=== PATIENT | male | born 1940 | race Caucasian/White ===

== ENCOUNTER → 2020-05-28 14:37 | Outpatient (BNVA) | payer MEDICARE, OTHER, SELFPAY | PROVIDERS: PCP Internal Medicine; Visit Provider Hospitalist | DX: J96.10 Chronic respiratory failure, unspecified whether with hypoxia or hypercapnia (principal); J44.9 Chronic obstructive pulmonary disease, unspecified | CPT/HCPCS: 99202 ==

== ENCOUNTER → 2020-06-29 14:13 | Outpatient (BNVA) | payer MEDICARE, OTHER, SELFPAY | PROVIDERS: PCP Internal Medicine; Visit Provider Hospitalist | DX: J96.10 Chronic respiratory failure, unspecified whether with hypoxia or hypercapnia (principal); J44.9 Chronic obstructive pulmonary disease, unspecified; G47.33 Obstructive sleep apnea (adult) (pediatric); R91.8 Other nonspecific abnormal finding of lung field; I27.81 Cor pulmonale (chronic) | CPT/HCPCS: 99212 ==

== ENCOUNTER → 2020-08-24 12:53 | Outpatient (BNVA) | payer MEDICARE, OTHER, SELFPAY | PROVIDERS: PCP Internal Medicine; Visit Provider Hospitalist | DX: G47.33 Obstructive sleep apnea (adult) (pediatric) (principal); R91.8 Other nonspecific abnormal finding of lung field; J96.11 Chronic respiratory failure with hypoxia; J41.0 Simple chronic bronchitis; I27.81 Cor pulmonale (chronic); Z79.51 Long term (current) use of inhaled steroids; Z87.891 Personal history of nicotine dependence | CPT/HCPCS: 99212 ==

== ENCOUNTER → 2020-10-15 14:17 | Outpatient (BNVA) | payer MEDICARE, OTHER, SELFPAY | PROVIDERS: PCP Internal Medicine; Visit Provider Hospitalist | DX: G47.33 Obstructive sleep apnea (adult) (pediatric) (principal); I27.81 Cor pulmonale (chronic); R91.8 Other nonspecific abnormal finding of lung field; J96.11 Chronic respiratory failure with hypoxia; J41.0 Simple chronic bronchitis | CPT/HCPCS: 94618; 99212; Q3014 ==

== ENCOUNTER 2020-10-21 15:03 | Outpatient (REF) | payer MEDICARE, OTHER, SELFPAY ==
--- NOTE | 2020-10-21 16:51 | PFT_ITS ---
INDICATION: COPD. SPIROMETRY: The FEV1 to FVC 52% with an FEV1 of 1.58 L, which is 72% predicted, and an FVC of 3.03 L, which is 97% predicted. No significant response to bronchodilators noted. Maximum voluntary ventilation 35% predicted. LUNG VOLUMES: Total lung capacity 100% predicted with residual volume 126% predicted. DIFFUSION CAPACITY: DLCO 70% predicted. COMPARISONS: None available. INTERPRETATION: The patient is an obstructive ventilatory defect consistent with moderate COPD. No significant response to bronchodilators noted. There is also moderate decrease in maximum voluntary ventilation secondary to deconditioning and also worsening dynamic inspiratory capacity. Lung volumes with significant air trapping due to the COPD in a very severe diffusion impairment. Clinical correlation warranted. Sampson Bateman MD MR/MODL / [id number]
== END 2020-10-21 15:04 | disposition home or self-care (01) ==
LOC: HO.RESP 15:03
PROVIDERS: PCP Internal Medicine; Visit Provider Hospitalist
DX: J41.0 Simple chronic bronchitis (principal)
CPT/HCPCS: 94060; 94727; 94729

== ENCOUNTER → 2020-11-30 13:32 | Outpatient (BNVA) | payer MEDICARE, OTHER, SELFPAY | PROVIDERS: PCP Internal Medicine; Visit Provider Hospitalist | DX: G47.33 Obstructive sleep apnea (adult) (pediatric) (principal); I27.81 Cor pulmonale (chronic); R91.8 Other nonspecific abnormal finding of lung field; J96.11 Chronic respiratory failure with hypoxia; J41.0 Simple chronic bronchitis | CPT/HCPCS: 99212 ==

== ENCOUNTER → 2021-05-31 13:33 | Outpatient (BNVA) | payer MEDICARE, OTHER, SELFPAY | PROVIDERS: PCP Internal Medicine; Visit Provider Hospitalist | DX: G47.33 Obstructive sleep apnea (adult) (pediatric) (principal); J96.11 Chronic respiratory failure with hypoxia; J41.0 Simple chronic bronchitis; R91.8 Other nonspecific abnormal finding of lung field; I27.81 Cor pulmonale (chronic) | CPT/HCPCS: 99212 ==

== ENCOUNTER 2021-11-29 14:01 | Outpatient (REF) | payer MEDICARE, OTHER, SELFPAY ==
[2021-11-29 14:21] LABS: MANUAL DIFF FLAG NO
[2021-11-29 14:25] LABS: Basophils Percent Auto 0.2 % (0-2); Eosinophils Absolute Auto 0.1 X10*3/uL (0.0-0.4); Eosinophils Percent Auto 1.5 % (0-4); Hematocrit 28.9 % (42.0-52.0); Hemoglobin 9.1 g/dl (14.0-18.0); Imm Gran Abs Auto 0.03 X10*3/uL (0.00-0.03); Imm Gran Pct Auto 0.5 % (0.0-0.4); Lymphocytes Absolute Auto 0.7 X10*3/uL (1.2-4.9); Lymphocytes Percent Auto 12.7 % (20-40); Mean Corpuscular HGB Conc 31.5 g/dl (31.0-36.0); Mean Corpuscular Hemoglobin 30.4 pg (27.0-33.0); Mean Corpuscular Volume 96.7 fL (80.0-98.0); Mean Platelet Volume 9.9 fL (9.4-12.4); Monocytes Absolute Auto 0.6 X10*3/uL (0.1-1.2); Monocytes Percent Auto 9.5 % (2-11); Neutrophils Absolute Auto 4.4 x10*3/uL (2.0-8.3); Neutrophils Percent Auto 75.6 % (45-73); Red Blood Count 2.99 X10*6/uL (4.60-5.80); Red Cell Distribution Width 16.9 % (11.0-16.0); White Blood Count 5.8 X10*3/uL (4.8-10.8)
[2021-11-29 14:26] LABS: Platelet Count 55 X10*3/uL (160-400); Venous Blood Gas Refer to POC result
[2021-11-29 14:39] LABS: VBG pCO2 55 mmHg; VBG pH 7.32 (7.32-7.43); VBG pO2 30 mmHg
[2021-11-29 14:40] LABS: VBG Base Excess 2.4 mmol/L; VBG HCO3 29 mmol/L (22-26)
[2021-11-29 14:45] LABS: Anion Gap 11 (12-20); Blood Urea Nitrogen 26 mg/dL (9-16); Calcium 9.5 mg/dL (8.4-10.2); Carbon Dioxide 30 mmol/L (22-29); Chloride 105 mmol/L (96-108); Estimated Glomerular Filt Rate 37; Glucose Random 88 mg/dL (60-115); Potassium 5.7 mmol/L (3.3-5.1); Sodium 140 mmol/L (135-145)
[2021-11-29 15:02] LABS: Erythrocyte Sedimentation Rate 110 MM/HR (0-15)
[2021-12-03 14:02] LABS: CK-BB None Detected (None Detected); CK-MB 0 % (<5); CK-MM 100 % (95-100); Creatine Kinase,Total,Serum 34 U/L (44-196)
== END 2021-11-29 14:02 | disposition home or self-care (01) ==
LOC: HO.LAB 14:01
PROVIDERS: Visit Provider Hospitalist
DX: G47.33 Obstructive sleep apnea (adult) (pediatric) (principal); I27.81 Cor pulmonale (chronic); R91.8 Other nonspecific abnormal finding of lung field; J96.11 Chronic respiratory failure with hypoxia; J44.9 Chronic obstructive pulmonary disease, unspecified; M62.81 Muscle weakness (generalized); Z87.891 Personal history of nicotine dependence
CPT/HCPCS: 36415; 80048; 82552; 82803; 85025; 85652; 99212

== ENCOUNTER → 2022-06-06 13:08 | Outpatient (BNVA) | payer MEDICARE, OTHER, SELFPAY | PROVIDERS: PCP Internal Medicine; Visit Provider Hospitalist | DX: G47.33 Obstructive sleep apnea (adult) (pediatric) (principal); J96.11 Chronic respiratory failure with hypoxia; R91.8 Other nonspecific abnormal finding of lung field; I27.81 Cor pulmonale (chronic); J41.0 Simple chronic bronchitis | CPT/HCPCS: 99212 ==

== ENCOUNTER → 2022-11-14 13:20 | Outpatient (BNVA) | payer MEDICARE, OTHER, SELFPAY | PROVIDERS: PCP Internal Medicine; Visit Provider Hospitalist | DX: J41.0 Simple chronic bronchitis (principal); J96.11 Chronic respiratory failure with hypoxia; G47.33 Obstructive sleep apnea (adult) (pediatric); I27.81 Cor pulmonale (chronic); R91.8 Other nonspecific abnormal finding of lung field; Z79.899 Other long term (current) drug therapy; Z99.81 Dependence on supplemental oxygen | CPT/HCPCS: 99212 ==

== ENCOUNTER 2023-08-21 13:15 | Outpatient (AMB) | payer MEDICARE, OTHER, SELFPAY ==
[2023-08-21 13:28] VITALS: PULSE 70; O2SAT 95; BMI 24.9
--- NOTE | 2023-08-21 13:28 | A.OFFVIS_ITS ---
Intake Vital Signs 08/21/23 13:28 Height 5 ft 4 in Weight 145 lb BMI 24.9 Pulse 70 Pulse Source Pulse Oximeter Pulse Oximetry (%) 95 Oxygen Delivery Method Room Air Intake Visit Reasons: COPD Healthcare Social Worker Required: No Allergies adhesive tape Allergy (Severe, Verified 08/21/23 13:29) Blister HPI HPI Comments History of Present Illness Details The patient is a 83-year-old gentleman with extensive COPD and emphysema, chronic respiratory failure on oxygen in addition to pulmonary nodul es. He has been complaining worsening shortness of breath for the last several months. He does not feel his inhalers are helping him. He does use the oxygen however does not feel that he gets any benefit from the oxygen either. He has been using a conserving device in he does increase it to 4 L pulse. He did have a CT scan of the chest done at [facility] which we personally revie wed demonstrating the extensive emphysema throughout his lungs. He does have subcentimeter pulmonary nodules. Also appears to have some degree of interstitial lung disease at the bases. Overall this is very significant. In the office we did taken for 6 minutes walk test and he would desaturate on 4 L pulse down to 86%. Therefore he needs to be in continues oxygen. I did call his DME company in order to switch him to a continues tank. Ideally with a Oxymizer pendant began keep his oxygen L flow down and he can have a reserve were to help him to be less breathless in view of his extensive emphysema. His D[facility] company is [employer]. 06/29/2020 the patient is here for pulabby crowe follow-up visit. Recently he was hospitalized with worsening respiratory symptoms. He was found to be in dorene estive heart failure. [place] [facility] he had a full workup including a CT scan of the chest which we personally reviewed demonstrating extensive emphysema and additional to some pulmonary nodules which appeared to be slightly larger in size. Along with some underlying pulmonary fibrosis. In addition to that he did undergo a perfusion study that was negative for any PE, had an echocardiogram demonstrating evidence of pulmonary hypertension and also aortic stenosis. His medications were appropriately adjusted and the patient was diuresed aggressively decreasing a lot of the lower extremity edema. In addition to that the patient has been having some daytime drowsiness. Last night he woke up dizzy with headaches. He continues to have an elevated Sumner score of 12/24. He has extensive cardiac history is significant pulmonary disease. He did have a sleep study done August 2018 demonstrating severe sleep apnea with significant hypoxia. The patient needs to start CPAP therapy SHOAIB. For some reason this was not followed up at this point the patient needs it in order to improve his overall cardiovascular risk factors in overall prognosis. Therefore I will submit a new prescription for CPAP therapy with his current DME company, [facility]. The patient also got his Oxymizer pendant although he is trying to get used to it. I explained to him th at if he uses the Oxymizer pendant as he is outside with his portable tank he will have a longer life to the time. He will consider this at this time. 08/24/2020 the patient is here for maria c crowe follow-up visit. Patient continues to use the oxygen with good effect. However, at this point the portable oxygen gas tank does not given a portability. The patient needs to get a battery operated portable oxygen concentrator. This was given better portability outside of the home. I will request a POC from his local DME company. In the meantime he did not get the CPAP. His sleep study is too old for August 2018. However, the patient has significant daytime drowsiness with an elevated Sumner score 12/24 and he does not feel comfortable undergoing a sleep study at this time. Since he is on oxygen he would have to needed in-lab study and he is concerned about the pandemic at this time. Therefore I will discuss this with the [employer] company to see if they can make an arrangement for him to start CPAP therapy and then we can always retest after he is vaccinated and when the pandemic is in a better overall status. The patient continues with the current respiratory regimen with good effect. He continues to have dyspnea on exertion [id number] severity. But overall better. His lower extremity edema has also improved dramatically. 10/15/2020 the patient is here for maria c crowe follow-up visit. He continues to have significant dyspnea on exertion. When he ambulates he does get short of breath and sometimes his legs feel weak in sometimes he does feel dizzy. Typically he is using a conserving device between 3-5 L pulse. We did request a portable oxygen concentrator from his [employer] company. With this hopefully he can be able to travel to see his family. He did get a larger with the can not handle 2 L continuous. However, in the office we did have him undergo a 6 minutes walk test any did require 3 L with activity to maintain a pulse ox in the 90s. Therefore will recent prescription to see if he can have it device that can handle 3 L if possible. In addition to that the patient will be a great candidate for pulmonary rehabilitation. He is using the CPAP at nighttime. He does have oxygen along with CPAP which is working well. We have to discuss his pulmonary nodule and further imaging in the next visit. 11/30/2020 the patient is here for pulmo willay follow-up visit. Since we last spoke the patient was not able to tolerate the CPAP any longer when he returned it. He continues to sleep with the oxygen. He also has a portable oxygen concentrator that he uses with activity. He did start going to outpatient pulmonary rehabilitation, but, he feels is too far away from the rehab he wishes he has something closely by and not low. At this point he is not significantly closer to any of the program. I did provide him with a web based pulmonary rehabilitation he can do at home. In addition to that did recommend he get [employer] a in a portable peddler that he can exercise both his arms and his legs depending on his arthritis. He is responding well to his current respiratory regimen. 05/31/2021 the patient is here for a pulmonary follow-up visit. He continues to have dyspnea on exertion moderate severity. The oxygen is helpful. The Trelegy inhaler also has been helpful. He still has episodes of chest congestion and chronic bronchitis. Trying to minimize the use of prednisone. The patient would benefit from using Daliresp. Therefore I will send a prescription to the pharmacy. He has been having issues with his oxygen concent rator. I will request a call from the [employer]. 11/29/2021 the patient is here for a pulm onary follow-up visit. Overall he is doing little better. He was admitted to [facility] where he did undergo testing for blood loss. He was found to have multiple bleeding areas in the small bowel that were intervene down. The patient states that he is feeling better from that standpoint. He is using the oxygen with good effect. The patient states that though he still gets short of breath with activity. Also coming into the hospital he quickly felt like his legs were giving out on him. He is very weak and feels like he is going to fall. Very unsteady on his feet. Today he came in and had to be placed on a wheelchair because of the weakness. The patient has been using the oxygen well. Will go ahead and check a venous gas to assess his pCO2 to make sure that he is not having any significant hypercarbia. If he is having hypercapnia then treatment with noninvasive ventil ator may be effective in improving his gas exchange improving his muscle strength and his risk of falls. The patient will also undergo additional blood work. He continues on the Trelegy. This has been helpful. He has not required his rescue inhaler. I did explain to the significant other that his main manifestation of the COPD is mainly in position a based on his last CT scan of the chest. In addition to that he continues on Daliresp. The patient is not using CPAP. 06/06/2022 The patient is here for a pul monary follow up visit. He is feeling better. Still has dyspnea on exertion. moderate in severity. The oxygen has been helpful. He continues the Trelegy and the daliresp. He has been able to lose several pounds. Also he has been dealing with his anemia that is likely contributing to his dyspnea and it has been improving. The patient does have concerning nodules. We will follow up with a CT chest foe the next visit. If he has any issues prior to that he is to call foe an earlier evaluation. 11/14/2022 the patient is here for a pulm onary follow-up visit. Overall patient is doing better. He is responding well to the current respiratory regimen. Still getting dyspnea on exertion specially when going up a hill or flight of stairs. Moderate severity. He does use his oxygen with good effect. The patient did have a CT scan of the chest sometime in September 2022. We did review it together. Seems like the nodular densities have decreased or resolved which is reassuring. He does have extensive emphysema noted. 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 He does have a GI doctor. I will go ahead and fax over the results to his GI doctor so they can reviewed. Seems like the area has not changed when compared to 2021 but looks like is increased when compared to previous. 08/21/2023 the patient is here for pulmona ry follow-up visit. Overall the patient has been doing well. He continues use the Trelegy inhaler. He has also been on Daliresp now for many years. The therapy has been affecting beneficial. Does changed insurance and now is not covering the brand name. They however cover the generic. I will send the generic medication to the pharmacy. Again, this has helped him significantly. he also continues use the oxygen with good effect. He does have portable tanks and also concentrator for home. The patient has been on diuretic therapy. sometimes he does not take it because of the inconvenience of having to be frequently urinating. However, this morning he did have increased shortness of breath and his heart rate is a little bit fast. I do pursuing that he is started to become volume overloaded. He did have blood work at [facility] his brain atretic peptide was indeed elevated. Therefore explained to the importance of taking his diuretic. And have blood work at the end of the week with his primary care doctor to make sure that his electrolytes are stable. Again, his last CT scan was back in September 2022 de monstrating interval improvement of the ground-glass nodular density is regular not studies. Also has extensive emphysema. No additional imaging testing at this time. Will discuss additional testing during his next visit in the fall. [facility] Medical History (Updated 11/14/22 @ 22:51 by Sampson Bateman MD) ARNEL (obstructive sleep apnea) Cor pulmonale Pulmonary nodules Chronic respiratory failure COPD (chronic obstructive pulmonary disease) Social History (Updated 05/31/21 @ 13:43 by ALYSSIA Kevin) Household Members: Spouse Patient Tobacco Use Status: Former Tobacco user Tobacco use type: Cigarette Years Smoked: 11 years Review of Systems Const Denies daytime sleepiness and Denies night sweats ENT Denies change in voice, Denies dizziness, Denies lip swelling, Denies mouth pain, Denies nasal congestion, Reports nasal discharge and Denies tongue swelling Card Denies chest pain, Reports palpitations and Reports dyspnea on exertion Resp Denies chest congestion, Reports cough and Reports dyspnea on exertion GI Denies abdominal pain Musc Denies no additional complaints and Reports muscle weakness Neuro Denies Neuro-related abnormal movements and Denies dizziness Psych Denies no additional complaints Endo Reports palpitations Terrance/Lymph Denies easy bleeding and Denies lymphadenopathy Aller/Immun Denies lip swelling and Denies tongue swelling Physical Exam Vital Signs: Last Vital Signs Pulse 70 08/21/23 13:28 Pulse Ox 95 08/21/23 13:28 Oxygen Delivery Method Room Air 08/21/23 13:28 BMI result Body Mass Index 24.9 Const General: alert Neck Neck: Yes normal visual inspection, Yes full ROM and Yes no lymphadenopathy Chest Chest palpation & inspection: normal inspection of the chest Resp Auscultation: diminished lung sounds Cardio Rate: regular rate Rhythm: regular rhythm Heart sounds: S1 normal heart sound present and S2 normal heart sound present GI Palpation (GI): Soft to palpation and nontender Auscultation: normal bowel sounds Skin General skin exam: rashes and/or lesions noted Assessment & Plan Assessment & Plan (1) ARNEL (obstructive sleep apnea): Comment: Severe ARNEL based on PSG, symptomatic with increase cardiovascular disease, did not tolerate therapy. Using oxygen. Code(s): G47.33 - Obstructive sleep apnea (adult) (pediatric) (2) Cor pulmonale: Code(s): I27.81 - Cor pulmonale (chronic) (3) Pulmonary nodules: Comment: multiple nodules, better Code(s): R91.8 - Other nonspecific abnormal finding of lung field (4) Chronic respiratory failure: Code(s): J96.10 - Chronic respiratory failure, unspecified whether with hypoxia or hypercapnia Qualifiers: Respiratory failure complication: hypoxia Qualified Code(s): J96.11 - Chronic respiratory failure with hypoxia (5) COPD (chronic obstructive pulmonary disease): Code(s): J44.9 - Chronic obstructive pulmonary disease, unspecified Qualifiers: COPD type: chronic bronchitis Chronic bronchitis type: simple Qualified Code(s): J41.0 - Simple chronic bronchitis Plan Continue oxygen supplementation to maintain a pulse ox between 89-96% Continue Trelegy inhaler daily Short-acting beta agonist as needed continue Dalresp/Roflumilast diuresi as tolerated Follow-up 6-8 months Medications: New roflumilast 500 mcg PO DAILY 30 days 30 tabs 11RF Coding Level of Care Code Est Pt Level 4 (05845) Diagnoses ARNEL (obstructive sleep apnea) G47.33 Cor pulmonale I27.81 Pulmonary nodules R91.8 Chronic respiratory failure with hypoxia J96.11 Respiratory failure complication: hypoxia Simple chronic bronchitis J41.0 COPD type: chronic bronchitis Chronic bronchitis type: simple Time Spent (min) 17
== END 2023-08-21 13:47 | disposition home or self-care (01) ==
PROVIDERS: PCP Internal Medicine; Visit Provider Hospitalist
DX: G47.33 Obstructive sleep apnea (adult) (pediatric) (principal); I27.81 Cor pulmonale (chronic); R91.8 Other nonspecific abnormal finding of lung field; J96.11 Chronic respiratory failure with hypoxia; J41.0 Simple chronic bronchitis
CPT/HCPCS: 99214

== ENCOUNTER → 2023-08-21 13:15 | Outpatient (BNVA) | payer MEDICARE, OTHER, SELFPAY | PROVIDERS: Visit Provider Hospitalist | DX: G47.33 Obstructive sleep apnea (adult) (pediatric) (principal); I27.81 Cor pulmonale (chronic); R91.8 Other nonspecific abnormal finding of lung field; J96.11 Chronic respiratory failure with hypoxia; J41.0 Simple chronic bronchitis | CPT/HCPCS: 99212 ==

== ENCOUNTER 2024-01-21 10:40 | Outpatient (AMB) | payer MEDICARE, OTHER, SELFPAY ==
[2024-01-21 10:47] VITALS: PULSE 75; O2SAT 93; BMI 24.0
--- NOTE | 2024-01-21 10:47 | MHC.OFFVIS ---
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 He has been complaining worsening shortness of breath for the last several months. He does not feel his inhalers are helping him. He does use the oxygen however does not feel that he gets any benefit from the oxygen either. He has been using a conserving device in he does increase it to 4 L pulse. He did have a CT scan of the chest done at [facility] which we personally reviewed demonstrating the extensive emphysema throughout his lungs. He does have subcentimeter pulmonary nodules. Also appears to have some degree of interstitial lung disease at the bases. Overall this is very significant. In the office we did taken for 6 minutes walk test and he would desaturate on 4 L pulse down to 86%. Therefore he needs to be in continues oxygen. I did call his DME company in order to switch him to a continues tank. Ideally with a Oxymizer pendant began keep his oxygen L flow down and he can have a reserve were to help him to be less breathless in view of his extensive emphysema. His DME company is [facility]. 06/29/2020 the patient is here for pulmonary follow-up visit. Recently he was hospitalized with worsening respiratory symptoms. He was found to be in congestive heart failure. He was admitted to [facility]. There he had a full workup including a CT scan of the chest which we personally reviewed demonstrating extensive emphysema and additional to some pulmonary nodules which appeared to be slightly larger in size. Along with some underlying pulmonary fibrosis. In addition to that he did undergo a perfusion study that was negative for any PE, had an echocardiogram demonstrating evidence of pulmonary hypertension and also aortic stenosis. His medications were appropriately adjusted and the patient was diuresed aggressively decreasing a lot of the lower extremity edema. In addition to that the patient has been having some daytime drowsiness. Last night he woke up dizzy with headaches. He continues to have an elevated Chelsea score of 12/24. He has extensive cardiac history is significant pulmonary disease. He did have a sleep study done August 2018 demonstrating severe sleep apnea with significant hypoxia. The patient needs to start CPAP therapy SHOAIB. For some reason this was not followed up at this point the patient needs it in order to improve his overall cardiovascular risk factors in overall prognosis. Therefore I will submit a new prescription for CPAP therapy with his current DME company, [facility]. The patient also got his Oxymizer pendant although he is trying to get used to it. I explained to him that if he uses the Oxymizer pendant as he is outside with his portable tank he will have a longer life to the time. He will consider this at this time. 08/24/2020 the patient is here for pulmonary follow-up visit. Patient continues to use the oxygen with good effect. However, at this point the portable oxygen gas tank does not given a portability. The patient needs to get a battery operated portable oxygen concentrator. This was given better portability outside of the home. I will request a POC from his local DME company. In the meantime he did not get the CPAP. His sleep study is too old for August 2018. However, the patient has significant daytime drowsiness with an elevated Chelsea score 12/24 and he does not feel comfortable undergoing a sleep study at this time. Since he is on oxygen he would have to needed in-lab study and he is concerned about the pandemic at this time. Therefore I will discuss this with the [employer] company to see if they can make an arrangement for him to start CPAP therapy and then we can always retest after he is vaccinated and when the pandemic is in a better overall status. The patient continues with the current respiratory regimen with good effect. He continues to have dyspnea on exertion [id number] severity. But overall better. His lower extremity edema has also improved dramatically. 10/15/2020 the patient is here for pulmonary follow-up visit. He continues to have significant dyspnea on exertion. When he ambulates he does get short of breath and sometimes his legs feel weak in sometimes he does feel dizzy. Typically he is using a conserving device between 3-5 L pulse. We did request a portable oxygen concentrator from his [employer] company. With this hopefully he can be able to travel to see his family. He did get a larger with the can not handle 2 L continuous. However, in the office we did have him undergo a 6 minutes walk test any did require 3 L with activity to maintain a pulse ox in the 90s. Therefore will recent prescription to see if he can have it device that can handle 3 L if possible. In addition to that the patient will be a great candidate for pulmonary rehabilitation. He is using the CPAP at nighttime. He does have oxygen along with CPAP which is working well. We have to discuss his pulmonary nodule and further imaging in the next visit. 11/30/2020 the patient is here for pulmonary follow-up visit. Since we last spoke the patient was not able to tolerate the CPAP any longer when he returned it. He continues to sleep with the oxygen. He also has a portable oxygen concentrator that he uses with activity. He did start going to outpatient pulmonary rehabilitation, but, he feels is too far away from the rehab he wishes he has something closely by and not low. At this point he is not significantly closer to any of the program. I did provide him with a web based pulmonary rehabilitation he can do at home. In addition to that did recommend he get [employer] a in a portable peddler that he can exercise both his arms and his legs depending on his arthritis. He is responding well to his current respiratory regimen. 05/31/2021 the patient is here for a pulmonary follow-up visit. He continues to have dyspnea on exertion moderate severity. The oxygen is helpful. The Trelegy inhaler also has been helpful. He still has episodes of chest congestion and chronic bronchitis. Trying to minimize the use of prednisone. The patient would benefit from using Daliresp. Therefore I will send a prescription to the pharmacy. He has been having issues with his oxygen concentrator. I will request a call from the [employer]. 11/29/2021 the patient is here for a pulmonary follow-up visit. Overall he is doing little better. He was admitted to [facility] where he did undergo testing for blood loss. He was found to have multiple bleeding areas in the small bowel that were intervene down. The patient states that he is feeling better from that standpoint. He is using the oxygen with good effect. The patient states that though he still gets short of breath with activity. Also coming into the hospital he quickly felt like his legs were giving out on him. He is very weak and feels like he is going to fall. Very unsteady on his feet. Today he came in and had to be placed on a wheelchair because of the weakness. The patient has been using the oxygen well. Will go ahead and check a venous gas to assess his pCO2 to make sure that he is not having any significant hypercarbia. If he is having hypercapnia then treatment with noninvasive ventilator may be effective in improving his gas exchange improving his muscle strength and his risk of falls. The patient will also undergo additional blood work. He continues on the Trelegy. This has been helpful. He has not required his rescue inhaler. I did explain to the significant other that his main manifestation of the COPD is mainly in position a based on his last CT scan of the chest. In addition to that he continues on Daliresp. The patient is not using CPAP. 06/06/2022 The patient is here for a pulmonary follow up visit. He is feeling better. Still has dyspnea on exertion. moderate in severity. The oxygen has been helpful. He continues the Trelegy and the daliresp. He has been able to lose several pounds. Also he has been dealing with his anemia that is likely contributing to his dyspnea and it has been improving. The patient does have concerning nodules. We will follow up with a CT chest foe the next visit. If he has any issues prior to that he is to call foe an earlier evaluation. 11/14/2022 the patient is here for a pulmonary follow-up visit. Overall patient is doing better. He is responding well to the current respiratory regimen. Still getting dyspnea on exertion specially when going up a hill or flight of stairs. Moderate severity. He does use his oxygen with good effect. The patient did have a CT scan of the chest sometime in September 2022. We did review it together. Seems like the nodular densities have decreased or resolved which is reassuring. He does have extensive emphysema noted. 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 He does have a GI doctor. I will go ahead and fax over the results to his GI doctor so they can reviewed. Seems like the area has not changed when compared to 2021 but looks like is increased when compared to previous. 08/21/2023 the patient is here for pulmonary follow-up visit. Overall the patient has been doing well. He continues use the Trelegy inhaler. He has also been on Daliresp now for many years. The therapy has been affecting beneficial. Does changed insurance and now is not covering the brand name. They however cover the generic. I will send the generic medication to the pharmacy. Again, this has helped him significantly. he also continues use the oxygen with good effect. He does have portable tanks and also concentrator for home. The patient has been on diuretic therapy. sometimes he does not take it because of the inconvenience of having to be frequently urinating. However, this morning he did have increased shortness of breath and his heart rate is a little bit fast. I do pursuing that he is started to become volume overloaded. He did have blood work at [facility] his brain atretic peptide was indeed elevated. Therefore explained to the importance of taking his diuretic. And have blood work at the end of the week with his primary care doctor to make sure that his electrolytes are stable. Again, his last CT scan was back in September 2022 demonstrating interval improvement of the ground-glass nodular density is regular not studies. Also has extensive emphysema. No additional imaging testing at this time. Will discuss additional testing during his next visit in the fall. 01/21/2024 the patient is here for a pulmonary follow-up visit. The patient overall has been doing well. He continues use the oxygen with good effect. He does use it 24 hours a day. The patient does need the oxygen. He also has a portable oxygen concentrator that is been very effective with improving his portability outside of the home. Recently he was evaluated for question TIA. He did have a CT scan of the neck and also the brain. No significant findings there. We also did review his CT scan of the chest that he had back in 10/05/2022. We did review again the extensive emphysema and also the pulmonary nodules. In view of the size and also the extent of his emphysema will certainly do too much about the nodules since since her not changing were not going to continue to follow them. He does respond well to the Trelegy inhaler. He has not had to use his rescue inhaler. Overall he is doing well on his current therapy. He will follow-up in a year's time. And we will have him continue with the oxygen as it is been very affecting beneficial. [facility] Medical History (Updated 01/21/24 @ 21:17 by Sampson Bateman MD) ARNEL (obstructive sleep apnea) Cor pulmonale Pulmonary nodules Chronic respiratory failure COPD (chronic obstructive pulmonary disease) Social History (Updated 05/31/21 @ 13:43 by ALYSSIA Kevin) Household Members: Spouse Patient Tobacco Use Status: Former Tobacco user Tobacco use type: Cigarette Years Smoked: 11 years Review of Systems Const Denies daytime sleepiness and Denies night sweats ENT Denies change in voice, Denies dizziness, Denies lip swelling, Denies mouth pain, Denies nasal congestion, Reports nasal discharge and Denies tongue swelling Card Denies chest pain, Reports palpitations and Reports dyspnea on exertion Resp Denies chest congestion, Reports cough and Reports dyspnea on exertion GI Denies abdominal pain Musc Denies no additional complaints and Reports muscle weakness Neuro Denies Neuro-related abnormal movements and Denies dizziness Psych Denies no additional complaints Endo Reports palpitations Terrance/Lymph Denies easy bleeding and Denies lymphadenopathy Aller/Immun Denies lip swelling and Denies tongue swelling Physical Exam Vital Signs: Last Vital Signs Pulse 75 01/21/24 10:47 Pulse Ox 93 01/21/24 10:47 Oxygen Delivery Method Room Air 01/21/24 10:47 BMI result Body Mass Index 24.0 Const General: alert Neck Neck: Yes normal visual inspection, Yes full ROM and Yes no lymphadenopathy Chest Chest palpation & inspection: normal inspection of the chest Resp Auscultation: diminished lung sounds Cardio Rate: regular rate Rhythm: regular rhythm Heart sounds: S1 normal heart sound present and S2 normal heart sound present GI Palpation (GI): Soft to palpation and nontender Auscultation: normal bowel sounds Skin General skin exam: rashes and/or lesions noted Assessment & Plan Assessment & Plan (1) Cor pulmonale: Code(s): I27.81 - Cor pulmonale (chronic) Category: Medical (2) Pulmonary nodules: Comment: multiple nodules, better Code(s): R91.8 - Other nonspecific abnormal finding of lung field Category: Medical (3) Chronic respiratory failure: Code(s): J96.10 - Chronic respiratory failure, unspecified whether with hypoxia or hypercapnia Category: Medical Qualifiers: Respiratory failure complication: hypoxia Qualified Code(s): J96.11 - Chronic respiratory failure with hypoxia (4) COPD (chronic obstructive pulmonary disease): Comment: extensive emphysema Code(s): J44.9 - Chronic obstructive pulmonary disease, unspecified Category: Medical Qualifiers: COPD type: chronic bronchitis Chronic bronchitis type: simple Qualified Code(s): J41.0 - Simple chronic bronchitis Plan Continue oxygen supplementation, 2L/pulse with activity and 2L/min while sleeping Continue Trelegy inhaler daily Short-acting beta agonist as needed continue Dalresp/Roflumilast diuresi as tolerated Follow-up 12 months Coding Level of Care Code Est Pt Level 4 (54967) Complex EM visit Add On G2211 Diagnoses Cor pulmonale I27.81 Pulmonary nodules R91.8 Chronic respiratory failure with hypoxia J96.11 Respiratory failure complication: hypoxia Simple chronic bronchitis J41.0 COPD type: chronic bronchitis Chronic bronchitis type: simple Time Spent (min) 17
== END 2024-01-21 11:11 | disposition home or self-care (01) ==
PROVIDERS: PCP Internal Medicine; Visit Provider Hospitalist
DX: I27.81 Cor pulmonale (chronic) (principal); R91.8 Other nonspecific abnormal finding of lung field; J96.11 Chronic respiratory failure with hypoxia; J41.0 Simple chronic bronchitis
CPT/HCPCS: 99214; G2211

== ENCOUNTER → 2024-01-21 10:40 | Outpatient (BNVA) | payer MEDICARE, OTHER, SELFPAY | PROVIDERS: PCP Internal Medicine; Visit Provider Hospitalist | DX: J41.0 Simple chronic bronchitis (principal); J96.11 Chronic respiratory failure with hypoxia; I27.81 Cor pulmonale (chronic); R91.8 Other nonspecific abnormal finding of lung field; Z99.81 Dependence on supplemental oxygen | CPT/HCPCS: 99212 ==